=== PATIENT | female | born 1990 | race African-American/Black ===

== ENCOUNTER 2020-01-07 02:30 | Inpatient (IN) | payer OTHER ==
[2020-01-07] MEDS ORDERED: AMPICILLIN SODIUM 2 GM VIAL ONE (04:00)
[2020-01-07] MEDS ORDERED: AMPICILLIN - 2 GM in SODIUM CHLORIDE 100 ML IVPB ONE (04:00)
[2020-01-07 04:15] VITALS: BMI 29.9
--- NOTE | 2020-01-07 04:23 | HP ---
Past Medical History - Primary Care Physician PCP:: Eliz Glass - Admission Chief Complaint: Lower abdominal pain History of Present Illness: 29 yo , LU 01/15/20, EGA 38 weeks 6 days, presented with the above No bleeding or leaking fluid per vagina. History Source: Patient Limitations to Obtaining History: No Limitations - Past Medical History Pulmonary: Yes: Asthma ...: 4 ...Para: 3 ...Term: 3 ...: 0 ...Spon : 0 ...Induced : 0 ...Living Children: 3 ...LMP: 04/10/19 ... Weeks Gestation by Dates: 38.6 ...EDC by Dates: 01/15/20 ...EDC by Sono: 01/20/20 Heme/Onc: Yes: Anemia - Past Surgical History Hx Myomectomy: No Hx Transabdominal Cerclage: No - Smoking History Smoking history: Never smoked Have you smoked in the past 12 months: No - Alcohol/Substance Use Hx Alcohol Use: No History of Substance Use: reports: Marijuana - Social History Do you think of yourself as: Straight/Heterosexual History of Recent Travel: No Home Medications - Allergies Allergies/Adverse Reactions: Allergies Allergy/AdvReac Type Severity Reaction Status Date / Time No Known Allergies Allergy Verified 01/07/20 04:34 Family Medical History Family History: Denies Review of Systems - Review of Systems Constitutional: reports: No Symptoms Eyes: reports: No Symptoms HENT: reports: No Symptoms Neck: reports: No Symptoms Cardiovascular: reports: No Symptoms Respiratory: reports: No Symptoms Gastrointestinal: reports: No Symptoms Genitourinary: reports: No Symptoms Breasts: reports: No Symptoms Reported Musculoskeletal: reports: No Symptoms Integumentary: reports: No Symptoms Neurological: reports: No Symptoms Endocrine: reports: No Symptoms Hematology/Lymphatic: reports: No Symptoms Psychiatric: reports: No Symptoms Physical Exam - Maternity Vital Signs: Vital Signs Temperature 98.1 F 01/07/20 03:16 Pulse Rate 107 H 01/07/20 03:16 Respiratory Rate 18 01/07/20 03:16 Blood Pressure 113/60 01/07/20 03:16 O2 Sat by Pulse Oximetry (%) Constitutional: Yes: Well Nourished Eyes: Yes: WNL HENT: Yes: WNL Neck: Yes: WNL Cardiovascular: Yes: WNL - Abdominal Exam/OB Number of Fetuses: Single Presentation: Vertex Contractions: Yes Regularity: Regular Intensity: Mild/Mod Monitor Mode: External Heart Rate (range): 149 Heart Rate Location: [facility] Category: I Accelerations: Uniform Decelerations: None - Vaginal Exam/OB Vaginal Bleeding: No Speculum Exam: No Dilatation (cm): 4 Effacement (%): 70 Amniotic Membrane Status: Intact Presentation: Vertex/Position - Physical Exam Musculoskeletal: Yes: WNL Extremities: Yes: WNL Edema: No Integumentary: Yes: WNL ...Motor Strength: WNL Psychiatric: Yes: WNL Hemorrhage Risk Assessment - Risk Factors Medium Risk Factors: Yes: None High Risk Factors: Yes: None Risk Score: 1 Risk Level: Medium Risk Problem List - Problems (1) 38 weeks gestation of Code(s): Z3A.38 - 38 WEEKS GESTATION OF Assessment/Plan Early term gestation in labor Admit L and D for management
[2020-01-07] MEDS ORDERED: DEXTROSE 5%-LACTATED RINGERS 1,000 ML IV SCH (05:00)
[2020-01-07 05:43] LABS: BASO % 0.3 % (0-2.0); EOS % 1.3 % (0-4.5); HEMATOCRIT 31.7 % (32.4-45.2); HEMOGLOBIN 9.8 GM/dL (10.7-15.3); LYMPH % 26.8 % (8-40); MCH 24.4 pg (25.7-33.7); MEAN CELL VOLUME 78.6 fl (80-96); MONO % 5.7 % (3.8-10.2); NEUT % 65.9 % (42.8-82.8); PLATELET COUNT 179 K/MM3 (134-434); RBC 4.03 M/mm3 (3.60-5.2); RDW 19.1 % (11.6-15.6); WHITE BLOOD COUNT 6.6 K/mm3 (4.0-10.0)
[2020-01-07 05:51] LABS: INR 1.01 (0.83-1.09); PROTHROMBIN TIME (PATIENT) 11.9 SEC (9.7-13.0)
[2020-01-07 05:54] LABS: ACTIVATED PTT 27.8 SECONDS (25.2-36.5)
[2020-01-07 06:02] LABS: BLOOD UREA NITROGEN 3.6 mg/dL (7-18); CREATININE 0.3 mg/dL (0.55-1.3); POTASSIUM 3.4 mmol/L (3.5-5.1)
[2020-01-07] MEDS ORDERED: FENTANYL/BUPIVACAINE/NS/PF - PCEA - 50 ML DISP.SYRIN EP ONE (07:59)
[2020-01-07] MEDS ORDERED: PCA PUMP NR ONE (07:59)
[2020-01-07] MEDS ORDERED: BUPIVACAINE HCL/PF 0.25% (2.5MG/ML) 10 ML VIAL ONE (08:09)
[2020-01-07] MEDS: AMPICILLIN - 1 GM in SODIUM CHLORIDE 100 ML IVPB SCH ×3 (08:10→22:03)
[2020-01-07] MEDS ORDERED: NALOXONE HCL 0.4 MG/ML VIAL IVPUSH PRN (08:29)
[2020-01-07] MEDS ORDERED: FENTANYL/BUPIVACAINE/NS/PF - PCEA - 50 ML DISP.SYRIN EP SCH (08:30)
[2020-01-07] MEDS ORDERED: AMPICILLIN SODIUM 1 GM VIAL ONE ×2 (08:52→11:53)
[2020-01-07] MEDS ORDERED: OXYTOCIN 30 UNITS in 0.9% NS 30 UNIT/500 ML INFUS.BAG IVPB SCH ×2 (10:15→17:45)
[2020-01-07] MEDS ORDERED: ELECTROLYTE-148 SOLN 1,000 ML IV SCH (10:15)
--- NOTE | 2020-01-07 10:19 | PN ---
Progress Note (short form) - Note Progress Note: Attending note: patient comfortable; received epidural contractions irregular cervix= 5cm/ 80%/ -1 baseline= 140/ acc/ no decelerations I/P: will augment
[2020-01-07] MEDS ORDERED: OXYTOCIN 30 UNITS in 0.9% NS 30 UNIT/500 ML INFUS.BAG IVPB ONE (11:10)
[2020-01-07] MEDS ORDERED: LIDOCAINE HCL 1% PRESERVATIVE FREE - 30ML VIAL ONE (13:17)
[2020-01-07] MEDS ORDERED: OXYTOCIN 20 UNITS in 0.9% NS 20 UNIT/1,000 ML INFUS.BAG IV ONE (13:17)
[2020-01-07] MEDS ORDERED: METHYLERGONOVINE MALEATE 0.2 MG/1 ML AMP IM PRN (14:24)
[2020-01-07] MEDS ORDERED: ACETAMINOPHEN 325 MG TABLET (FP) PO PRN (14:24)
[2020-01-07] MEDS ORDERED: BENZOCAINE 20% 57 GM BOTTLE TP PRN (14:24)
[2020-01-07] MEDS ORDERED: WITCH HAZEL 50% (TUCKS) 40 PAD/JAR PAD TP PRN (14:24)
[2020-01-07] MEDS ORDERED: BENZOCAINE 28 GM HEMORRHOIDAL OINTMENT TP PRN (14:24)
[2020-01-07] MEDS ORDERED: BISACODYL 10 MG SUPP.RECT RC PRN (14:24)
[2020-01-07] MEDS ORDERED: IBUPROFEN 600 MG TABLET (FP) PO PRN (14:24)
--- NOTE | 2020-01-07 14:24 | PN ---
Delivery - Delivery Vaginal Delivery: No Problems Type of Anesthesia: Epidural Episiotomy/Laceration: None ( of live baby girl; OA position; intact perineum; = 9-9 placenta spontaneously delivered and complete; small skin abrasion, no sutures) EBL (cc): 300 Delivery, Single - Feeding Plan Initial Plan: Exclusive throughout hospitalization
[2020-01-07] MEDS ORDERED: D5W-LR W/ 20 UNITS OXYTOCIN 20 UNIT/1,000 ML INFUS.BAG IV SCH (14:30)
[2020-01-07] MEDS ORDERED: OXYTOCIN 20 UNITS in 0.9% NS 20 UNIT/1,000 ML INFUS.BAG IV SCH (17:45)
[2020-01-07] MEDS: IBUPROFEN 100 MG/5 ML UNIT DOSE CUPS PO PRN (18:18)
[2020-01-08 09:19] LABS: BASO % 0.3 % (0-2.0); EOS % 1.1 % (0-4.5); HEMATOCRIT 29.1 % (32.4-45.2); HEMOGLOBIN 9.1 GM/dL (10.7-15.3); LYMPH % 20.4 % (8-40); MCH 24.3 pg (25.7-33.7); MCHC 31.1 g/dl (32.0-36.0); MEAN CELL VOLUME 78.3 fl (80-96); MEAN PLT VOLUME 10.3 fl (7.5-11.1); MONO % 4.6 % (3.8-10.2); NEUT % 73.6 % (42.8-82.8); PLATELET COUNT 182 K/MM3 (134-434); RBC 3.72 M/mm3 (3.60-5.2); RDW 19.1 % (11.6-15.6); WHITE BLOOD COUNT 8.8 K/mm3 (4.0-10.0)
--- NOTE | 2020-01-08 12:43 | PN ---
Post Progress Note Post Day: 1 Type of Delivery: Vital Signs: Vital Signs Temperature 98.0 F 01/08/20 06:00 Pulse Rate 76 01/08/20 06:00 Respiratory Rate 18 01/08/20 06:00 Blood Pressure 108/67 01/08/20 06:00 O2 Sat by Pulse Oximetry (%) 100 01/07/20 13:45 Breast Exam: Yes: Soft Uterus: Yes: Fundus Firm, Fundus below umbilicus, Non-tender Abdomen/GI: Yes: Abdomen soft, Tolerating PO Lochia: Yes: Rubra Lochia, amount: Small Extremities: Yes: Calves non-tender Activity: Ambulating - Labs Labs: CBC WBC 8.8 K/mm3 (4.0-10.0) 01/08/20 09:05 RBC 3.72 M/mm3 (3.60-5.2) 01/08/20 09:05 Hgb 9.1 GM/dL (10.7-15.3) L 01/08/20 09:05 Hct 29.1 % (32.4-45.2) L 01/08/20 09:05 MCV 78.3 fl (80-96) L 01/08/20 09:05 MCH 24.3 pg (25.7-33.7) L 01/08/20 09:05 MCHC 31.1 g/dl (32.0-36.0) L 01/08/20 09:05 RDW 19.1 % (11.6-15.6) H 01/08/20 09:05 Plt Count 182 K/MM3 (134-434) 01/08/20 09:05 MPV 10.3 fl (7.5-11.1) 01/08/20 09:05 Absolute Neuts (auto) 6.5 K/mm3 (1.5-8.0) 01/08/20 09:05 Neutrophils % 73.6 % (42.8-82.8) 01/08/20 09:05 Lymphocytes % 20.4 % (8-40) D 01/08/20 09:05 Monocytes % 4.6 % (3.8-10.2) 01/08/20 09:05 Eosinophils % 1.1 % (0-4.5) 01/08/20 09:05 Basophils % 0.3 % (0-2.0) 01/08/20 09:05 Nucleated RBC % 0 % (0-0) 01/08/20 09:05 Problem List - Problems (1) 38 weeks gestation of Code(s): Z3A.38 - 38 WEEKS GESTATION OF Assessment/Plan S/P , ppd # 1, with no complaints Continue management .
[2020-01-08] MEDS ORDERED: DOCUSATE SODIUM 100 MG CAPSULE (FP) PO SCH (12:45)
[2020-01-08] MEDS ORDERED: FERROUS SO4 325 MG TABLET (FP) PO SCH (12:45)
[2020-01-08] MEDS: IBUPROFEN 100 MG/5 ML UNIT DOSE CUPS PO PRN (17:12)
[2020-01-08] MEDS: DOCUSATE NA 100 MG/10 ML UNIT-DOSE CUPS PO SCH ×2 (17:17→20:06)
[2020-01-08] MEDS: FERROUS SO4 300 MG/5 ML ORAL SOLN UNIT DOSE CUPS PO SCH ×2 (17:17→22:41)
[2020-01-08] MEDS ORDERED: SENNOSIDES/DOCUSATE COMBO (SENNA PLUS) TABLET (UD) PO PRN (22:00)
[2020-01-09] MEDS: FERROUS SO4 300 MG/5 ML ORAL SOLN UNIT DOSE CUPS PO SCH (09:08)
[2020-01-09] MEDS: DOCUSATE NA 100 MG/10 ML UNIT-DOSE CUPS PO SCH (09:09)
[2020-01-09 09:33] VITALS: BP 105/57; PULSE 83; TEMP 98
--- NOTE | 2020-01-09 09:59 | DS ---
Physical Exam-PROSPECT MANAGER Vital Signs: Vital Signs Temperature 98.0 F 01/09/20 09:33 Pulse Rate 83 01/09/20 09:33 Respiratory Rate 18 01/09/20 09:33 Blood Pressure 105/57 L 01/09/20 09:33 O2 Sat by Pulse Oximetry (%) 100 01/08/20 10:00 Labs: CBC, BMP 01/08/20 09:05 01/07/20 04:30 Delivery - Delivery Vaginal Delivery: No Problems Type of Anesthesia: Epidural Episiotomy/Laceration: None EBL (cc): 350 Delivery, Single - Stages of Labor Date 1st Stage Initiatied: 01/07/20 Time 1st Stage Initiated: 06:30 Date 2nd Stage Initiated: 01/07/20 Time 2nd Stage Initiated: 13:55 Date of Delivery: 01/07/20 Time of Delivery: 14:07 Time Placenta Delivered: 14:12 - Condition of Licensed Insurance Agent/Grit Blaster Present: No Infant Gender: Female Weight: 3.374 kg Position: Left, OA Total Hours ROM (Hrs/Mins): 12 min - 1 Minute Total Score: 9 5 Minutes Total Score: 9 - [place] Feeding Plan Initial Plan: Exclusive throughout hospitalization Remarks - Remarks Remarks: pt. without complaints vss - af abd: soft, nt, fundus firm ve: min lochia, intact ext: no calf tenderness b/l a/p PPD 2 pt. doing well d/c plan for today to home f/u w provider for PP check in 4-6 weeks Discharge Summary Problems reviewed: Yes Reason For Visit: LABOR ADMIT Current Active Problems 38 weeks gestation of (Acute) Procedures: Principal: Hospital Course: admitted in labor underwent uncomplicated PP course uneventful Condition: Good - Instructions Diet, Activity, Other Instructions: regular diet. activity as tolerated, but avoid strenuous activity, heavy lifting and intercourse. pericare Referrals: Enoc Bell MD [Staff Physician] - 1 Month (4-6 weeks PP visit) Disposition: HOME - Home Medications Comprehensive Discharge Medication List: Ambulatory Orders Pnv No.95/Ferrous Fum/Folic AC [ Caplet] 1 each PO DAILY 01/07/20 Ibuprofen [Motrin -] 600 mg PO Q6H PRN #50 tablet 01/09/20 Romario Chicas 50% (Denise) [Denise Pads -] 1 pad TP PRN PRN pad 01/09/20
== END 2020-01-09 13:00 | disposition home or self-care (01) | DRG 560 ==
LOC: JDEL 02:30 → JLDR 03:50 → J3W 16:19
PROVIDERS: ADMIT Obstetrics & Gynecology; ATTEND Obstetrics & Gynecology
PROC: 10E0XZZ Delivery of Products of Conception, External Approach (ICD-10-PCS; principal; 2020-01-07)
DX: O80 Encounter for full-term uncomplicated delivery (principal); Z37.0 Single live birth; Z3A.38 38 weeks gestation of pregnancy; Z91.013 Allergy to seafood; Z91.010 Allergy to peanuts
CPT/HCPCS: 36415; 59025; 59409; 80048; 85025; 85610; 85730; 86780; 86850; 86900; 86901; U0003